=== PATIENT | male | born 1965 | race Caucasian/White ===

== ENCOUNTER → 2018-05-05 | Day surgery (SDC) | payer BC ==
[~2018-05-05] MED LIST: IV RINGERS,LACTATED 1000ML 1,000 ML IV; LIDOCAINE 1% PF 2 ML VIAL. ID; LIDOCAINE 2% PF Vial for OR 5 ML VIAL.; MIDAZOLAM HCL/PF 2 MG/2 ML VIAL. IV; PROPOFOL 40 ML IV; fentaNYL PF VIAL 100 MCG/2 ML VIAL IV
== END | disposition home or self-care (01) ==
LOC: SURG 12:06
DX: Z12.11 Encounter for screening for malignant neoplasm of colon (principal); D12.0 Benign neoplasm of cecum; D12.5 Benign neoplasm of sigmoid colon; D12.2 Benign neoplasm of ascending colon; F41.9 Anxiety disorder, unspecified; Z72.89 Other problems related to lifestyle; Z87.442 Personal history of urinary calculi; Z79.899 Other long term (current) drug therapy
CPT/HCPCS: 45380; 45385; 88305; J2001; J2704